=== PATIENT | male | born 1950 | race Caucasian/White ===

== ENCOUNTER → 2025-06-02 10:57 | Outpatient (REF) | payer OTHER, SELFPAY | LOC: HWRCS 10:57 | PROVIDERS: ATTENDING PHYSICIAN Internal Medicine; FAMILY PHYSICIAN Internal Medicine | DX: R06.09 Other forms of dyspnea (principal) | CPT/HCPCS: 78452; 93017; A9500; J2785 ==

== ENCOUNTER 2025-06-09 16:11 | Inpatient (IN) | payer OTHER, SELFPAY ==
[2025-06-09] VITALS (13 sets, daily range): BP systolic 96–133; BP diastolic 51–96; BMI 32.3; BMI 30.6
[2025-06-09 14:17] LABS: Hematocrit 19.2 % (39.0-52.0); Hemoglobin 5.6 g/dL (13.0-18.0); Mean Corp Hgb Conc. 29.2 g/dL (33.0-37.0); Mean Corpuscular Volume 73.6 fL (80.0-94.0); Nucleated Red Blood Cells % 0 % (-); Platelet Count 277 10^3/uL (130-400); Red Cell Dist. Width 16.7 % (11.5-14.5)
[2025-06-09 14:39] LABS: ALT (SGPT) 10 U/L (0-50); AST (SGOT) 16 U/L (17-59); Albumin 4.2 g/dl (3.5-5.0); Alkaline Phosphatase 62 U/L (38-126); Blood Urea Nitrogen 24 mg/dl (9-20); Calcium 8.8 mg/dl (8.4-10.2); Carbon Dioxide 24 mmol/L (22-30); Chloride 104 mmol/L (98-107); Glucose 116 mg/dl (70-99); Potassium 4.2 mmol/L (3.5-5.1); Sodium 138 mmol/L (135-145); Total Protein 6.5 g/dl (6.3-8.2); eGFR 57.29
[2025-06-09 14:50] LABS: Troponin I < 0.012 ng/ml
--- NOTE | 2025-06-09 14:55 | ED.GENMED ---
History of Present Illness
General
Chief Complaint: Heart Rate Problem
Time Seen by Provider: 06/09/25 14:55
History of Present Illness
History of Present Illness:
FOCUSED PAST MEDICAL HISTORY
- A-fib on Eliquis, nonischemic cardiomyopathy
REVIEW OF OLD RECORDS
- I reviewed records, the patient was seen here in 2021 with diagnosis of persistent A-fib and had PVI in 2018 and 2019
Note:
CHIEF COMPLAINT(S)
Anemia, shortness of breath, and weakness.
HISTORY OF PRESENT ILLNESS
The patient is a 74-year-old male presenting with complaints of anemia, shortness of breath, and weakness. Over the past month, the patient has experienced increasing shortness of breath during ambulation and a noticeable decrease in appetite. The
patient previously underwent a nuclear stress test at [facility], which was inconclusive. The patients primary care physician, Dr. Lopez, who is a passenger elevator operator through [facility] [employer], has arranged for a cardiac catheterization procedure this upcoming
Friday.
Currently, lab results show that the patient has significantly low hemoglobin levels, measured at approximately 5 g/dL, compared to previous normal values of 13-14 g/dL. This anemia is strongly suspected to be the cause of the patients symptoms.
There are no signs of a recent myocardial infarction based on cardiac markers, but the patient appears paler than normal, which might suggest acute anemia. The patient denies any recent changes in stool color, such as darkening, or león bleeding
from the rectum. Despite the ongoing Eliquis therapy, the patient does not report taking additional anticoagulants like aspirin or Plavix. The patient also reports experiencing involuntary leg movements (chronic) but denies any chest pain or
pressure.
PHYSICAL EXAM
General: Alert, appears pale, and somewhat weak
Skin: Warm, dry, and pale.
Head: Normocephalic, atraumatic.
Neck: Supple, trachea midline.
Eye, Ears, Nose, Mouth, and Throat: Oral mucosa moist.
Cardiovascular: Normal peripheral perfusion, no edema. Irregular rhythm
Respiratory: Respirations are non-labored. Lung sounds
Gastrointestinal: Abdomen is nondistended. Heme-negative scant dark brown stool
Back: Normal range of motion, normal alignment.
Musculoskeletal: Normal range of motion, normal strength. No abnormal leg movement at this time
Neurological: Alert and oriented to person, place, time, and situation, no focal neurological deficit observed.
Psychiatric: Cooperative, appropriate mood and affect.
PLAN
1. Blood transfusion is recommended due to the patients hemoglobin level being significantly below 7 g/dL. This is expected to improve symptoms related to breathing and general weakness.
2. A consultation with the patients passenger elevator operator, Dr. Beach, at [facility], is needed to address the ongoing cardiac issues and to coordinate care surrounding the pending cardiac catheterization procedure.
3. Investigate potential gastrointestinal bleeding as a cause of anemia, although current findings do not yet confirm it. Additional diagnostics like endoscopy or colonoscopy may be considered.
4. Close monitoring of the patients clinical status post-transfusion and evaluation for any transfusion reactions or complications.
5. Maintain communication with Dr. Beach to ensure integrated care concerning the patients cardiac and anemic conditions.
DIFFERENTIAL DIAGNOSIS
The Differential Diagnosis includes, in no particular order and is not limited to:
1. Iron deficiency anemia
2. Acute gastrointestinal bleed
3. Chronic kidney disease-related anemia
4. Hemolytic anemia
5. Myelodysplastic syndrome
6. Anemia of chronic disease
7. Heart failure-related anemia
8. Vitamin B12 deficiency
9. Folate deficiency
10. Hypothyroidism
Disposition:
SUMMARY OF ENCOUNTER
The patient is a 74-year-old male who presented with significant anemia indicated by a hemoglobin level of 5.6, down from 14.7 in 2021. The patient reported experiencing anemia-related symptoms, including shortness of breath and weakness. There was
no evidence of gastrointestinal bleeding as a source for anemia, with heme-negative brown stool found upon digital rectal examination. The patients troponin levels are negative, dismissing myocardial infarction as a cause. Despite being on apixaban
(Eliquis), the primary concern was the severe drop in hemoglobin. Dr. Brandon Dalton was consulted, agreeing the severe anemia is more likely than coronary disease and recommended admission. Two units of blood were ordered for transfusion to address
anemia.
DISPOSITION
Admit.
ASSESSMENT
The primary assessment is severe anemia likely due to an unidentified cause. Abnormal EKG findings suggest potential cardiac issues, but the anemia is prioritized for immediate intervention.
EMERGENCY TREATMENTS ADMINISTERED
Two units of blood were ordered for transfusion.
MANAGEMENT OF THE PATIENTS CARE WAS DISCUSSED WITH
Dr. Brandon Dalton agreed with the assessment of severe anemia and recommended admission to the medicine service.
INDEPENDENT REVIEW OF LABS AND INTERPRETATION OF TESTS
My independent review of hemoglobin indicates the level is critically low at 5.6 g/dL, a significant drop from 14.7 g/dL in 2021.
My independent review of troponin indicates a negative result, ruling out myocardial infarction at this time.
MEDICATION RECONCILIATION
The patient is currently taking apixaban (Eliquis).
MEDICAL DECISION MAKING
-Complexity of Data Reviewed: Chronic conditions affecting care. Differential diagnosis includes iron deficiency anemia, acute gastrointestinal bleed, chronic kidney disease-related anemia, hemolytic anemia, myelodysplastic syndrome, anemia of
chronic disease, heart failure-related anemia, vitamin B12 deficiency, folate deficiency, and hypothyroidism.
-Data:
Category 1
Non-emergency department records reviewed. External record reviewed: Hemoglobin levels from 2021.
Category 3
Discussion of management with Dr. Brandon Dalton regarding anemia and the decision to admit.
-Risk:
Admission was the chosen course of action due to risk associated with critically low hemoglobin and transfusion
DIAGNOSIS
Severe anemia, unspecified - ICD-10-CM D64.9
EKG
- A-fib, subtle ST depression in the lateral leads which is new in comparison to 2021 but very similar in comparison to the EKG from last month
LABS
- Hemoglobin 5.6, BNP 2800, troponin less than 0.012
Phy Exam
Physical Exam
Physical Exam:
See HPI
Course
Orders/Labs/Results
Orders:
Orders
06/09/25 13:54
EKG [Electrocardiogram (*1)] Urgent
Reason for Study: Atrial Fibrillation
EKG- Treatment ONCE
06/09/25 14:10
BNP [NT-proBNP] Urgent
CBC/With Diff [Complete Blood Count/With Diff] Urgent
CMP [Comprehensive Metabolic Panel] Urgent
Ferritin Urgent
Comment: ADD ON
Iron Urgent
Comment: ADD ON
Total Iron Binding Urgent
Comment: ADD ON
Troponin I Urgent
06/09/25 14:55
* Blood Bank Products Urgent
Blood Bank Products: *Packed RBC Leuko(PRBC's)
Quantity: 2
Transfuse Today: Yes
Reason: Anemia
06/09/25 14:56
Add On- LAB Urgent
Tests Added?: tibc, ferritin, iron
06/09/25 15:08
Type And Crossmatch [Type+Screen] Urgent
Abnormal Lab Results
06/09/25
14:10
RBC 2.61 L 10^6/uL
(4.70-6.10)
Hgb 5.6 L* g/dL
(13.0-18.0)
Hct 19.2 L* %
(39.0-52.0)
MCV 73.6 L fL
(80.0-94.0)
MCH 21.5 L pg
(27.0-31.0)
MCHC 29.2 L g/dL
(33.0-37.0)
RDW 16.7 H %
(11.5-14.5)
Absolute Neuts (auto) 6.9 H 10^3/uL
(1.4-6.5)
Absolute Monos (auto) 0.9 H 10^3/uL
(0.1-0.6)
Lymphocytes % 13.4 L %
(20.5-51.1)
Monocytes % 9.6 H %
(1.7-9.3)
BUN 24 H mg/dl
(9-20)
Glucose 116 H mg/dl
(70-99)
AST 16 L U/L
(17-59)
06/09/25 14:10
06/09/25 14:10
Vital Signs
Initial and Last Documented VS:
Initial Vital Signs
Temp Resp BP
36.7 C 17 119/65
06/09/25 14:00 06/09/25 14:00 06/09/25 14:00
Last Documented Vital Signs
Temp Pulse Resp BP Pulse Ox
36.7 C 83 19 119/65 95
06/09/25 14:04 06/09/25 14:57 06/09/25 14:04 06/09/25 14:04 06/09/25 14:55
*Pulse Oximetry
SaO2: 95
Oxygen Mode of Delivery: Room air
Patient hypoxic: no
*Critical Care Note
Total Time (30-74mins, 75-104mins- exclusive of procedures): Not Applicable
ED Attending Note
-
Portions of this chart may have been created with voice recognition software.� Occasional wrong word or��sound alike� substitutions may have occurred due to the inherent limitations of voice recognition software.
Discharge Plan
Departure
Patient Disposition: Admit
Date of Disposition: 06/09/25
Time of Disposition: 15:15
Presentation/result/management discussed w/ accepting MD/DO: Hospitalist
Discharge Problem:
Symptomatic anemia
Prescriptions:
No Action
omeprazole 40 MG capsule,delayed release(DR/EC)
40 mg PO DAILY
oxycodone 15 MG tablet
15 mg PO BID MDD pain
simvastatin 20 MG tablet
20 mg PO QPM
allopurinol 300 MG tablet
300 mg PO DAILYPRN PRN (Reason: gout)
furosemide 20 MG tablet
20 mg PO DAILY
Eliquis 5 MG tablet
5 mg PO BID
amlodipine 2.5 mg Tablet
2.5 mg PO DAILY
metoprolol succinate 50 mg Tablet Extended Release 24 Hr
50 mg PO BID Qty: 1 0RF
sennosides [senna] 8.6 mg Tablet
8.6 mg PO DAILYPRN PRN (Reason: constipation)
potassium 99 mg Tablet
99 mg PO HS
docusate sodium [Colace] 100 mg Capsule
100 mg PO BID
Referrals:
Lukas Mercedes MD [Family Provider, Internal Medicine]
Interventions
Interventions:
*Risk Screen - Suicide Last Done: 06/09/25 14:00
*General Assessment Last Done: 06/09/25 14:00
*Neglect/Abuse Screening Last Done: 06/09/25 15:14
*ED- Fall Risk Assessment Last Done: 06/09/25 15:14
*ED COVID-19 Vaccine History Last Done: 06/09/25 14:00
*ED Influenza Vaccine History Last Done: 06/09/25 14:00
Discharge Date and Time
Print Language: SALVADOREAN
--- NOTE | 2025-06-09 15:20 | HPS.HSE ---
Addendum entered and electronically signed by Abdirashid Alvarado MD 06/09/25 19:17:
This is an addendum to H&P written by Carito Jones on 06/09/2025. �Patient seen examined independently with DIGITAL ASSET COORDINATOR.
74-year-old male past medical history of persistent atrial fibrillation status post Maze procedure 2021, prior PVI, right bundle branch block, obstructive sleep apnea on CPAP, hypertension, hyperlipidemia, gout, chronic back pain, GERD/Napoles's
esophagus, presenting with 3 days of black stool now improved and fatigue and shortness of breath for past month. �Constipation for 2 days.
He was seeing his manager law Dr. Hogue but was sent in by Dr. Dalton for consideration of cardiac etiology of symptoms and potential cath due to recent inconclusive nuclear stress test.
Patient had colonoscopy 3 years ago and EGD last year which were reportedly normal.
Vital signs show blood pressure 119/65 multiple times although blood pressure did decrease to 95 systolic. �Heme-negative brown stool.
Labs show hemoglobin 5.6.
Concern for upper GI bleeding/ symptomatic acute blood loss anemia as well as opioid associated constipation. �Hold antihypertensive medications. �Hold Eliquis. �N.p.o. past midnight, Protonix twice daily. �2 units of blood. �Iron transfusion. GI
consulted. �MiraLAX added for constipation.
Dr. Dalton thinks symptoms are all due to anemia rather than cardiac.
Original Note:
Family Physician
-
Family Physician: Lukas Mercedes
Chief Complaint
-
Weakness, shortness of breath times several weeks
History of Present Illness
74-year-old male complaining of weakness along with shortness of breath over the past several weeks he was referred to the ER by his manager law Dr. Lopez at [facility] for evaluation. Patient reports he did have black stool last week for
a few days then turned brown. He reports current constipation x 2 days no relief with Colace or senna. In the ER he was noted to be anemic with hemoglobin of 5.6 with heme-negative brown stool. Patient is on Eliquis for permanent A-fib.
Patient with past medical history of persistent A-fib status post PVI, maze procedure, reisolation of LSPV, LAPW and CTI flutter ablation 04/10/2022, chronic back pain on oral opiates, RBBB, GERD, SHARON/CPAP, HTN, HLD, gout
Medical History
Past Medical History
Past Medical History: Reports Other
Additional Past Medical History:
Persistent A-fib
Prior PVI 04/2019, 05/28/2020
Maze procedure 03/08/2022
Post reisolation of LS PV, LA PW and CTI flutter ablation 04/10/2022
RBBB
SHARON/CPAP
HTN
HLD
Gout
Chronic back painOn chronic oral opiates
Past Surgical History: Reports Other
Additional Past Surgical History:
Prior PVI 04/2019, 05/28/2020
Maze procedure 03/08/2022
Post reisolation of LS PV, LA PW and CTI flutter ablation 04/10/2022
Social History
Tobacco: Non-smoker
Alcohol: None
Drug: None
Personal:
Living: With Family ( dora)
Employment: Retired
Family History
Family History: Not pertinent
Allergies / Home Medications
Allergies reflects when Allergies were last updated in [employer].
Home Medications with original date entered in [employer]
Allergy/Medication List:
Allergies
Allergy/AdvReac Type Severity Reaction Status Date / Time
No Known Allergies Allergy Verified 04/10/22 06:51
Home Medications
allopurinol 300 mg tablet 300 mg PO DAILYPRN PRN gout 04/23/19
apixaban 5 mg tablet (Eliquis) 5 mg PO BID Blood clot prevention/tx 04/23/19
furosemide 20 mg tablet 20 mg PO DAILY Fluid retention/Swelling 04/23/19
omeprazole 40 mg capsule,delayed release 40 mg PO DAILY Gastrointestinal issue 04/23/19
oxycodone 15 mg tablet 15 mg PO BID 04/23/19
simvastatin 20 mg tablet 20 mg PO QPM High cholesterol 04/23/19
amlodipine 2.5 mg tablet 2.5 mg PO DAILY 04/10/22
metoprolol succinate 50 mg tablet,extended release 24 hr 50 mg PO BID #1 tab 04/11/22
docusate sodium 100 mg capsule (Colace) 100 mg PO BID 06/09/25
potassium 99 mg tablet 99 mg PO HS 06/09/25
sennosides 8.6 mg tablet (senna) 8.6 mg PO DAILYPRN PRN constipation 06/09/25
Review of Systems
-
History Source: Patient and Family ( dora at bedside )
A 12 point ROS was completed and negative except as noted: Yes
Constitutional: Reports Fatigue and Other (Pale in color); Denies Fever
EENT: Denies Sore Throat or Runny Nose
Respiratory: Reports Trouble Breathing (CHIU); Denies Cough
Cardiac: Denies Chest Pain, Diaphoresis, Palpitations or Syncope
Abdomen/GI: Reports Black Stools (Last week 3 days then resolved to brown); Denies Abdominal Pain, Nausea, Vomiting, Diarrhea, Constipated or Bloody Stools
: Denies Dysuria, Frequency, Flank Pain, Incontinence or Difficulty Voiding
Musculoskeletal: Denies Joint Pain or Edema
Skin: Denies Itching or Rash
Neurological: Denies Dizzy, Headache or Weakness
Endocrine: Reports No Symptoms
Hematologic/Lymphatic: Reports No Symptoms
Psych: Reports Calm
Physical Exam
Vital Signs
Vital Signs
Temp Pulse Resp BP Pulse Ox
98.1 F 83 19 119/65 95
06/09/25 14:04 06/09/25 14:57 06/09/25 14:04 06/09/25 14:04 06/09/25 14:55
Physical Exam
General: Conversant and Other (Pale in color); No Pain, Fever or Chills
HEENT: NormoCephalic, Anicteric, Moist mucous membranes, PERRLA, No Ptosis and Other (Pale conjunctiva)
Respiratory: Clear; No Wheezes, Rales or Rhonchi
Cardiac: S1/S2 and Regular Rhythm; No Murmur, Rub, Gallop or Peripheral Edema
Breast: Deferred by me
GI: Soft, Non Tender, Non Distended, Normal Bowel Sounds and No Hepatosplenomegaly
Rectal: Hem Negative (Brown in ER)
Genito-urinary: Deferred by me
Musculoskeletal: No Clubbing, No Cyanosis and No Edema
Skin: Warm and Dry; No Rash
Neuro: AO x 3, No Motor Deficits, Nonfocal/grossly intact, Cranial Nerves Intact and No Sensory Deficits; No Slurred Speech, Facial Droop, Tremors or Sedated
Psych: Calm
Laboratory Results
-
06/09/25 14:10
06/09/25 14:10
Laboratory Results
Total Bilirubin 1.1 mg/dl (0.2-1.3) 06/09/25 14:10
AST 16 U/L (17-59) L 06/09/25 14:10
ALT 10 U/L (0-50) 06/09/25 14:10
Alkaline Phosphatase 62 U/L (38-126) 06/09/25 14:10
Troponin I < 0.012 ng/ml 06/09/25 14:10
Data Reviewed
-
Lab Data: Labs Reviewed by me
Impression/Plan
-
Impression/plan:
Admit to telemetry
#Symptomatic anemia new Iron deficiency anemia
Heme-negative brown stool in ER however patient reports black stool few days last week
Hgb 5.6, MCV 73.6--prior Hgb 14.7 in 2021 per patient's manager law [address]. Lopez
Iron 21, percent sat 4%
-Check iron panel, B12, folate
92% RA will have supportive oxygen available
-Type and screen
-Transfuse 2 units PRBC
-Start IV Ferrlecit
-IV Protonix 40 mg daily
- Follow CBC
- PT OT consult
- Heme check stools
-Consult GI
- N.p.o. past midnight
EKG: A-fib 87 bpm, QTc 486 MS chronic T wave abnormality lateral leads no change from June 02, 2025
#GERD/Napoles's esophagus
-omeprazole 40 mg daily
-Will give IV Protonix 40 mg daily
- Recent endo 2023
#Acute constipation opioid-induced
Last bowel movement 2 days no relief with Colace and senna
-Will add MiraLAX now
-Monitor stool for blood
#Persistent A-fib
#Prior PVI 04/2019, 05/28/2020
#Maze procedure 03/08/2022
#Post reisolation of LSPV, LAPW and CTI flutter ablation 04/10/2022
- Recent stress test was inconclusive by manager law Dr. Lopez
- Hold Eliquis 5 mg twice daily
#RBBB
#Chronic back pain On chronic oral opiates
- Continue oxycodone 15 mg p.o. twice daily, Colace 100 mg twice daily, senna 8.6 mg daily as needed constipation
#SHARON/CPAP
Patient wears nasal CPAP unsure of setting
#HTN
BP 119/65
- Continue metoprolol succinate 50 mg twice daily with hold parameters, amlodipine 2.5 mg daily with hold parameters, furosemide 20 mg daily
#HLD
Continue simvastatin 20 mg every afternoon
#Gout
- Continue allopurinol 300 mg p.o. daily as needed gout
DVT prophylaxis
SCDs
Full code
[2025-06-09 15:32] LABS: Iron 21 ug/dl (49-181)
[2025-06-09 15:42] LABS: Total Iron Binding Capacity 460 ug/dl (261-462)
[2025-06-09 17:21] LABS: Ferritin 7.8 ng/ml (17.9-464.0)
[2025-06-09 17:52] LABS: Folate 7.8 ng/ml (2.76-20); Vitamin B12 215 pg/ml (239-931)
--- NOTE | 2025-06-09 18:44 | CON.GI ---
Consultation
-
Date/Time Consultation Requested: 06/09/2025
Date/Time Consultation Performed: 06/09/2025
Requesting Provider:
Performing Provider:
Reason for Consultation: anemia
Medical History
Chief Complaint / HPI
Chief Complaint: SOB and fatigue
History of Present Illness:
This is a 74-year-old male with past medical history of nonischemic cardiomyopathy, A-fib on Eliquis his information developer is Dr. Lopez at [facility], RBBB, SHARON/CPAP, HTN, HLD, Gout, cataracts, GERD, Barretts here for symptomatic anemia. He says that
for the past 1 month he has been having profound fatigue and dyspnea on exertion and he thought it was related to his heart saw his information developer and is scheduled for a cardiac catheterization next week. He now presents to the ER and was noted to
have a hemoglobin of 5.6 with an MCV of 73.6. His hemoglobin in 2021 was 14.7. His BUN is 24. He had iron studies also at admission which showed severe iron deficiency anemia with a ferritin of 7.8 iron saturation of 4%. LFTs are normal,
troponin is negative. He states his last endoscopy was in 2023 for Napoles's esophagus and he follows up with [facility] and sees Dr. Muller. He told me he also had a colonoscopy last year along with his endoscopy but he told the admitting
team that he had his colonoscopy about 3 years ago and is actually due for a colonoscopy this August. He says about 2 weeks ago he noted dark stools 2-3 episodes which resolved and he has not had any further episodes since then. He denies any
abdominal pain. No nausea or vomiting or hematemesis. No recent weight loss.
Past Medical History
Past Medical History: Other (NICM, A-fib on Eliquis, RBBB, SHARON/CPAP, HTN, HLD, Gout, cataracts, GERD, Barretts)
Past Surgical History: Other (CCY, left TKR, low back fusion, cataract, Prior PVI 04/2019 and 05/28/2020 Maze procedure 03/08/2022, Post reisolation of LS PV, LA PW and CTI flutter ablation 04/10/2022)
Social History
Tobacco: Non-Smoker
Alcohol: None
Drug: None
Personal:
Living: With Family
Employment: Retired
Family History
Family History: Reviewed & Not Pertinent
Allergies / Home Medications
Allergy/AdvReac Type Severity Reaction Status Date / Time
No Known Allergies Allergy Verified 04/10/22 06:51
�Medication �Instructions �Recorded
allopurinol 300 mg tablet 300 mg PO DAILYPRN PRN gout 04/23/19
apixaban 5 mg tablet (Eliquis) 5 mg PO BID Blood clot 04/23/19
prevention/tx
furosemide 20 mg tablet 20 mg PO DAILY Fluid 04/23/19
retention/Swelling
omeprazole 40 mg capsule,delayed 40 mg PO DAILY Gastrointestinal 04/23/19
release issue
oxycodone 15 mg tablet 15 mg PO BID 04/23/19
simvastatin 20 mg tablet 20 mg PO QPM High cholesterol 04/23/19
amlodipine 2.5 mg tablet 2.5 mg PO DAILY 04/10/22
metoprolol succinate 50 mg 50 mg PO BID #1 tab 04/11/22
tablet,extended release 24 hr
docusate sodium 100 mg capsule 100 mg PO BID 06/09/25
(Colace)
potassium 99 mg tablet 99 mg PO HS 06/09/25
sennosides 8.6 mg tablet (senna) 8.6 mg PO DAILYPRN PRN constipation 06/09/25
Review of Systems
-
All other systems: A 12 pt ROS was Negative except as stated above in HPI
Vital Signs
Temp Pulse Resp BP Pulse Ox
97.5 F 74 12 112/72 88
06/09/25 17:25 06/09/25 18:00 06/09/25 18:00 06/09/25 18:00 06/09/25 18:00
Physical Exam
Exam
General: No Apparent Distress
HEENT: Normocephalic
Respiratory: Clear
Cardiac: Regular Rhythm and Murmur (systolic murmur)
GI: Soft, Non Tender, Non Distended and Normal Bowel Sounds
Neuro: Awake, Alert and Oriented
Psych: Calm
Results
WBC 9.5 10^3/uL (4.8-10.8) 06/09/25 14:10
Hgb 5.6 g/dL (13.0-18.0) L* 06/09/25 14:10
Hct 19.2 % (39.0-52.0) L* 06/09/25 14:10
MCV 73.6 fL (80.0-94.0) L 06/09/25 14:10
Plt Count 277 10^3/uL (130-400) 06/09/25 14:10
Absolute Neuts (auto) 6.9 10^3/uL (1.4-6.5) H 06/09/25 14:10
Sodium 138 mmol/L (135-145) 06/09/25 14:10
Potassium 4.2 mmol/L (3.5-5.1) 06/09/25 14:10
Chloride 104 mmol/L (98-107) 06/09/25 14:10
Carbon Dioxide 24 mmol/L (22-30) 06/09/25 14:10
BUN 24 mg/dl (9-20) H 06/09/25 14:10
Creatinine 1.3 mg/dL (0.7-1.3) 06/09/25 14:10
Calcium 8.8 mg/dl (8.4-10.2) 06/09/25 14:10
Total Bilirubin 1.1 mg/dl (0.2-1.3) 06/09/25 14:10
AST 16 U/L (17-59) L 06/09/25 14:10
ALT 10 U/L (0-50) 06/09/25 14:10
Alkaline Phosphatase 62 U/L (38-126) 06/09/25 14:10
Diagnostic Image Results:
Prior GI Procedures:
EGD: 2023 at [facility]
Colonoscopy: 3 years ago [facility]
Assessment / Plan
-
Severe symptomatic iron deficiency anemia concerning for probable neoplasm versus blood loss from angioectasias vs PUD he did have 2-3 episodes of melena about 2 weeks ago which resolved and he says his stools have been brown since then. Is getting
2 units of packed red blood cells. He took his Eliquis today morning so will have to wait for Eliquis washout and will schedule him for endoscopy and colonoscopy on Friday which will be performed sooner if he has any active bleeding. Will also try
and obtain records from [facility].
-
-
Thank you for consultation and allowing me to participate in the patient's care. Please call the alumni relations coordinator GI physician during the after hours with any questions or concerns.
[2025-06-09] MEDS: ROXICODONE 15 MG PO (20:24)
[2025-06-09] MEDS: COLACE 100 MG PO (20:24)
[2025-06-09] MEDS: NSS (PRESERVATIVE FREE) 10 ML IV (20:29)
[2025-06-09] MEDS: PROTONIX IV 40 MG IV (20:29)
[2025-06-09] MEDS: MIRALAX 17 GRAMS PO (20:48)
[2025-06-09] MEDS: FERRLECIT 110 MG IV (20:48)
[2025-06-10] VITALS (9 sets, daily range): BP systolic 110–131; BP diastolic 57–81; PULSE 87; BMI 31.9
[2025-06-10] MEDS: ROXICODONE 15 MG PO ×2 (08:04→21:11)
[2025-06-10] MEDS: NSS (PRESERVATIVE FREE) 10 ML IV ×2 (08:04→20:06)
[2025-06-10] MEDS: COLACE 100 MG PO ×2 (08:04→20:04)
[2025-06-10] MEDS: MIRALAX 17 GRAMS PO ×2 (08:04→20:05)
[2025-06-10] MEDS: PROTONIX IV 40 MG IV ×2 (08:05→20:06)
[2025-06-10 08:59] LABS: Hematocrit 24.0 % (39.0-52.0); Hemoglobin 7.2 g/dL (13.0-18.0); Mean Corp Hgb Conc. 30.0 g/dL (33.0-37.0); Mean Corpuscular Volume 76.2 fL (80.0-94.0); Nucleated Red Blood Cells % 0 % (-); Platelet Count 240 10^3/uL (130-400); Red Cell Dist. Width 17.6 % (11.5-14.5)
--- NOTE | 2025-06-10 09:20 | W.PN.HOSP.TC ---
Today's Communication/Plan
-
Add Senna
ok for diet
GI work up Friday
Assessment / Plan
Assessment / Plan
Physical Exam
General: Conversant and Other (Pale in color); No Pain, Fever or Chills
HEENT: Normocephalic, Anicteric, Moist mucous membranes, PERRLA, No Ptosis and Other (Pale conjunctiva)
Respiratory: Clear; No Wheezes, Rales or Rhonchi
Cardiac: S1/S2 and Regular Rhythm; No Murmur, Rub, Gallop or Peripheral Edema
GI: Soft, Non Tender, Non Distended, Normal Bowel Sounds.
Rectal: Hem Negative (Brown in ER)
Genito-urinary: No Vaughn
Musculoskeletal: No Clubbing, No Cyanosis and No Edema
Skin: Warm and Dry; No Rash
Neuro: AO x 3, No Motor Deficits, Nonfocal/grossly intact, No Slurred Speech, Facial Droop, Tremors or Sedated
Psych: Calm.
A/P:
#Acute blood loss anemia
Symptomatic anemia new Iron deficiency anemia
Heme-negative brown stool in ER however patient reports black stool few days last week
Hgb 5.6, MCV 73.6--prior Hgb 14.7 in 2021 per patient's business advisor Dr. Lopez
Iron 21, percent sat 4%
s/p 2 units PRBC
-c/w IV Iron
-IV Protonix 40 mg daily
- Follow CBC
- PT OT consulted
- Heme check stools
-Consulted GI, GI work up on Friday after Eliquis wash-out
#GERD/Napoles's esophagus
-omeprazole 40 mg daily
IV Protonix 40 mg daily
- Recent endo 2023
#Acute constipation opioid-induced
Last bowel movement 2 days no relief with Colace and senna
- MiraLAX
-Monitor stool for blood
#Persistent A-fib
#Prior PVI 04/2019, 05/28/2020
#Maze procedure 03/08/2022
#Post reisolation of LSPV, LAPW and CTI flutter ablation 04/10/2022
- Recent stress test was inconclusive by business advisor Dr. Lopez
- Hold Eliquis 5 mg twice daily
#RBBB
#Chronic pain syndrome with opioid dependency
Back pain on chronic oral opiates
- Continue oxycodone 15 mg p.o. twice daily, Colace 100 mg twice daily, senna 8.6 mg daily as needed constipation
#SHARON/CPAP
Patient wears nasal CPAP unsure of setting
#HTN
- Continue metoprolol succinate 50 mg twice daily with hold parameters, amlodipine 2.5 mg daily with hold parameters, furosemide 20 mg daily
#HLD
Continue simvastatin 20 mg every afternoon
#Gout
- Continue allopurinol 300 mg p.o. daily as needed gout
DVT prophylaxis
SCDs
Total time spent to see the patient, examine the patient, review data and lab result, discuss treatment plan with patient, nursing staff around 55 minutes
Anticipated Discharge: > 48 hours
Subjective/Interval History
-
Date of Service: June 10, 2025
No chest pain
No abdominal pain
Wants to eat
Objective Data
-
Labs:
Laboratory Results
06/10/25 06/10/25
07:14 07:15
WBC 8.9
Hgb 7.2 L D
Hct 24.0 L
Plt Count 240
Sodium Pending
Potassium Pending
Chloride Pending
Carbon Dioxide Pending
BUN Pending
Creatinine Pending
Glucose Pending
Calcium Pending
Total Bilirubin Pending
AST Pending
ALT Pending
Alkaline Phosphatase Pending
Vital Signs:
Vital Signs
Temp Pulse Resp BP Pulse Ox
97.7 F 75 16 120/68 97
06/10/25 07:00 06/10/25 07:00 06/10/25 07:00 06/10/25 07:00 06/10/25 07:00
I&O
06/09/25 06/10/25 06/11/25
06:59 06:59 06:59
Intake Total 740 / 740
Output Total 300 / 300
Balance 440 / 440
[2025-06-10 09:48] LABS: ALT (SGPT) < 10 U/L (0-50); AST (SGOT) 15 U/L (17-59); Albumin 3.7 g/dl (3.5-5.0); Alkaline Phosphatase 66 U/L (38-126); Blood Urea Nitrogen 20 mg/dl (9-20); Calcium 9.0 mg/dl (8.4-10.2); Carbon Dioxide 24 mmol/L (22-30); Chloride 106 mmol/L (98-107); Estimated Creatinine Clearance 56 ml/min; Glucose 87 mg/dl (70-99); Potassium 3.9 mmol/L (3.5-5.1); Sodium 138 mmol/L (135-145); Total Protein 6.2 g/dl (6.3-8.2); eGFR > 60.00
--- NOTE | 2025-06-10 11:16 | CM ---
Patient seen at bedside on . Patient lives with his in a 1 story home with 3 steps to enter. Patient has a CPAP at home and uses it. Patient PCP is Dr. Gaytan and he uses the [facility] in [place] for pharmacy needs. Patient plan is for
home with no needs at this time. CM will continue to follow for discharge planning needs.
Plan; pending medical treatment plan; watch for home VN needs
--- NOTE | 2025-06-10 12:07 | W.PN.GI.CBS2 ---
Addendum entered and electronically signed by Ramses Rosas MD 06/10/25 13:47:
I saw and examined the patient.
The SHELLFISH SORTER or PA's note was reviewed and I agree with the note.
Comment: 74 yo pmh ischemic CM, A fib on Eliquis, Napoles's p/w symptomatic anemia found to have hemoglobin of 5.6. Of note, he states he had melena that 2 weeks ago which self resolved after 2 or 3 episodes. Stools have now been normal. He does
have some baseline constipation. I did get his outside records which I have reviewed and put in an updated note. He had an endoscopy 02/2025 with Schiatzki ring dilated and Napoles's not biopsied (only Watt's; 2021 only one jar of Napoles's taken
for long segment); last colo 02/2022 polyps inc TVA all small, tics, hemorrhoids.
Plan EGD/cscope Friday d/w patient r/a/b procedure including not limited to bleeding, infection, perforation, missed lesion.
With constipation so will need bowel regimen over weekend.
Hold Eliquis last dose 10 am.
Continue protonix IV BID.
Original Note:
Today's Communication / Plan
-
EGD/COLO friday
Assessment / Plan
-
Severe symptomatic iron deficiency anemia concerning for probable neoplasm versus blood loss from angioectasias vs PUD he did have 2-3 episodes of melena about 2 weeks ago which resolved and he says his stools have been brown since then. Patient is
s/p 2 units of packed red blood cells. He took his Eliquis 06/09/25 morning so will have to wait for Eliquis washout. Plan for endoscopy and colonoscopy on Friday which will be performed sooner if he has any active bleeding. Pending records from
prior procedures.
Impression:
Severe symptomatic anemia
Chronic Anticoagulation, last dose 06/08/25 for Afib
GERD/Barretts
Plan:
-continue Pantoprazole 40 mg IV BID
-continue miralax, colace and Senna
-Ok for low residue diet today.
-Await records from GI
-Plan on EGD/COLO Friday.
Subjective
Subjective
Date of Service: June 10, 2025
Patient without any BM overnight. Feeling improved after having blood and iron. Hgb currently 7.2. Awaiting records from prior GI. Plan on EGD/COLO on Friday, patient agreeable.
Objective
Data Reviewed
Laboratory Data:
Laboratory Results
06/10/25 07:15
06/10/25 07:14
Laboratory Results
Total Bilirubin 3.0 mg/dl (0.2-1.3) H D 06/10/25 07:14
AST 15 U/L (17-59) L 06/10/25 07:14
ALT < 10 U/L (0-50) 06/10/25 07:14
Alkaline Phosphatase 66 U/L (38-126) 06/10/25 07:14
Vital Signs and I&O:
Vital Signs
Temp Pulse Resp BP Pulse Ox
97.7 F 75 16 120/68 97
06/10/25 07:00 06/10/25 07:00 06/10/25 07:00 06/10/25 07:00 06/10/25 07:00
I&O
06/09/25 06/10/25 06/11/25
06:59 06:59 06:59
Intake Total 740 / 740
Output Total 300 / 300
Balance 440 / 440
Physical Exam
Physical Exam
HEENT: Anicteric
Cardiology: Normal Sinus Rhythm
Pulmonary: Clear (anterior)
GI: Soft, Non Distended, Non Tender and Normal Bowel Sounds
Neuro: Non Focal
--- NOTE | 2025-06-10 12:40 | W.PN.UPDATE ---
Update Note
Progress Note Update
Records reviewed from outside hospital:
Upper endoscopy August 2022 duodenum normal, diffuse moderate erythema in the stomach biopsies taken, polyps in the stomach biopsies taken, small hiatal hernia, Napoles's esophagus. Biopsies and WATS taken. Pathology consistent with Napoles's.
Mild chronic inflammation of stomach.
Colonoscopy August 2022 5 polyps 4 to 6 mm in size removed with cold snare, diverticulosis, hemorrhoids. Pathology showed tubular adenoma and tubulovillous adenoma.
Upper endoscopy February 2025 Napoles's esophagus last taken, mild stenosis of the GE junction dilated to 18 mm, multiple polyps in the stomach, duodenum normal. Do not have pathology.
[2025-06-10] MEDS: FERRLECIT 110 MG IV (13:41)
[2025-06-10] MEDS: LIPITOR 10 MG PO (17:34)
[2025-06-10] MEDS: SENOKOT 17.2 MG PO (21:11)
[2025-06-11] VITALS (12 sets, daily range): BP systolic 116–136; BP diastolic 67–91; BMI 32.0
--- NOTE | 2025-06-11 06:21 | PTCARENOTE ---
Pt slept well overnight. Pt did not move bowels, bowel regimen in place. New IV placed this am by VAT RN. Vital signs stable. Pt ambulatory to bathroom as needed. Call holden in reach. Will continue to monitor.
[2025-06-11 07:38] LABS: Hematocrit 23.7 % (39.0-52.0); Hemoglobin 7.0 g/dL (13.0-18.0); Mean Corp Hgb Conc. 29.5 g/dL (33.0-37.0); Mean Corpuscular Volume 77.7 fL (80.0-94.0); Nucleated Red Blood Cells % 0 % (-); Platelet Count 234 10^3/uL (130-400); Red Cell Dist. Width 17.9 % (11.5-14.5)
[2025-06-11 07:59] LABS: ALT (SGPT) < 10 U/L (0-50); AST (SGOT) 15 U/L (17-59); Albumin 3.5 g/dl (3.5-5.0); Alkaline Phosphatase 66 U/L (38-126); Blood Urea Nitrogen 14 mg/dl (9-20); Calcium 9.0 mg/dl (8.4-10.2); Carbon Dioxide 26 mmol/L (22-30); Chloride 106 mmol/L (98-107); Estimated Creatinine Clearance 61 ml/min; Glucose 89 mg/dl (70-99); Potassium 3.6 mmol/L (3.5-5.1); Sodium 138 mmol/L (135-145); Total Protein 6.0 g/dl (6.3-8.2); eGFR > 60.00
--- NOTE | 2025-06-11 09:04 | W.PN.HOSP.TC ---
Today's Communication/Plan
-
Opioid induced constipation, will need bowel regimen
Asked for recliner to sleep
2 Units of RBCS today
Assessment / Plan
Assessment / Plan
Physical Exam
General: Conversant and Other (Pale in color); No Pain, Fever or Chills
HEENT: Normocephalic, Anicteric, Moist mucous membranes, PERRLA, No Ptosis and Other (Pale conjunctiva)
Respiratory: Clear; No Wheezes, Rales or Rhonchi
Cardiac: S1/S2 and Regular Rhythm; No Murmur, Rub, Gallop or Peripheral Edema
GI: Soft, Non Tender, Non Distended, Normal Bowel Sounds.
Rectal: Hem Negative (Brown in ER)
Genito-urinary: No Vaughn
Musculoskeletal: No Clubbing, No Cyanosis and No Edema
Skin: Warm and Dry; No Rash
Neuro: AO x 3, No Motor Deficits, Nonfocal/grossly intact, No Slurred Speech, Facial Droop, Tremors or Sedated
Psych: Calm.
A/P:
#Acute blood loss anemia
Symptomatic anemia new Iron deficiency anemia
Heme-negative brown stool in ER however patient reports black stool few days last week
Hgb 5.6, MCV 73.6--prior Hgb 14.7 in 2021 per patient's associate professor of biblical studies Dr. Lopez
Iron 21, percent sat 4%
s/p 2 units PRBC, will give another 2 units with Lasix in between.
-c/w IV Iron
-IV Protonix 40 mg daily
- PT OT consulted
Goal of HGB >8
-Consulted GI, GI work up on Friday after Eliquis wash-out
#GERD/Napoles's esophagus
-omeprazole 40 mg daily
IV Protonix 40 mg daily
- Recent endo 2023
#Acute constipation opioid-induced
Last bowel movement 2 days no relief with Colace and senna
- MiraLAX
No rectal bleeding
# Opioid induced constipation
will need bowel regimen
#Persistent A-fib
#Prior PVI 04/2019, 05/28/2020
#Maze procedure 03/08/2022
#Post reisolation of LSPV, LAPW and CTI flutter ablation 04/10/2022
- Recent stress test was inconclusive by associate professor of biblical studies Dr. Lopez
- Hold Eliquis 5 mg twice daily
#RBBB
#Chronic pain syndrome with opioid dependency
Back pain on chronic oral opiates
- Continue oxycodone 15 mg p.o. twice daily, Colace 100 mg twice daily, senna 8.6 mg daily as needed constipation
#SHARON/CPAP
Patient wears nasal CPAP unsure of setting
#HTN
- Continue metoprolol succinate 50 mg twice daily with hold parameters, amlodipine 2.5 mg daily with hold parameters, furosemide 20 mg daily
#HLD
Continue simvastatin 20 mg every afternoon
#Gout
- Continue allopurinol 300 mg p.o. daily as needed gout
DVT prophylaxis
SCDs
Total time spent to see the patient, examine the patient, review data and lab result, discuss treatment plan with patient, nursing staff around 55 minutes
Anticipated Discharge: > 48 hours
Subjective/Interval History
-
Date of Service: June 11, 2025
No chest pain
No sob
Objective Data
-
Labs:
Laboratory Results
06/11/25
06:39
WBC 8.4
Hgb 7.0 L
Hct 23.7 L
Plt Count 234
Sodium 138
Potassium 3.6
Chloride 106
Carbon Dioxide 26
BUN 14
Creatinine 1.1
Glucose 89
Calcium 9.0
Total Bilirubin 2.1 H
AST 15 L
ALT < 10
Alkaline Phosphatase 66
Vital Signs:
Vital Signs
Temp Pulse Resp BP Pulse Ox
98.1 F 73 20 120/74 99
06/11/25 07:42 06/11/25 07:42 06/11/25 07:42 06/11/25 07:42 06/11/25 07:42
I&O
06/10/25 06/11/25 06/12/25
06:59 06:59 06:59
Intake Total 740 / 740 900 / 900
Output Total 300 / 300 300 / 300
Balance 440 / 440 600 / 600
[2025-06-11] MEDS: ROXICODONE 15 MG PO ×2 (10:19→22:03)
[2025-06-11] MEDS: COLACE 100 MG PO ×2 (10:19→22:02)
[2025-06-11] MEDS: NSS (PRESERVATIVE FREE) 10 ML IV ×2 (10:21→22:02)
[2025-06-11] MEDS: MIRALAX 17 GRAMS PO ×2 (10:22→22:02)
[2025-06-11] MEDS: PROTONIX IV 40 MG IV ×2 (10:22→22:03)
--- NOTE | 2025-06-11 10:39 | W.PN.GI.CBS2 ---
Today's Communication / Plan
-
extended bowel prep starting today
Assessment / Plan
-
74 yo pmh ischemic CM, A fib on Eliquis, Napoles's p/w symptomatic anemia found to have hemoglobin of 5.6. Of note, he states he had melena that 2 weeks ago which self resolved after 2 or 3 episodes. Stools have now been normal. He does have some
baseline constipation. I did get his outside records which I have reviewed and put in an updated note. He had an endoscopy 02/2025 with Schiatzki ring dilated and Napoles's not biopsied (only Watt's in 2024; 2021 only one jar of Napoles's taken for
long segment- therefore Napoles's needs to be biopsied on Friday); last colo 02/2022 polyps inc TVA all small, tics, hemorrhoids.
Plan EGD/cscope Friday d/w patient 06/10 r/a/b procedure including not limited to bleeding, infection, perforation, missed lesion.
With constipation so will need bowel regimen over weekend - will give mag citrate tonight (Cr ok), continue miralax, senna, and start clear liquid at lunch.
Hold Eliquis last dose 10/2 am.
Continue protonix IV BID.
Subjective
Subjective
Date of Service: June 11, 2025
No BM despite miralax, senna, colace
Objective
Data Reviewed
Laboratory Data:
Laboratory Results
06/11/25 06:39
06/11/25 06:39
Laboratory Results
Total Bilirubin 2.1 mg/dl (0.2-1.3) H 06/11/25 06:39
AST 15 U/L (17-59) L 06/11/25 06:39
ALT < 10 U/L (0-50) 06/11/25 06:39
Alkaline Phosphatase 66 U/L (38-126) 06/11/25 06:39
Vital Signs and I&O:
Vital Signs
Temp Pulse Resp BP Pulse Ox
98.1 F 73 20 120/74 99
06/11/25 07:42 06/11/25 07:42 06/11/25 07:42 06/11/25 07:42 06/11/25 07:42
I&O
06/10/25 06/11/25 06/12/25
06:59 06:59 06:59
Intake Total 740 / 740 900 / 900
Output Total 300 / 300 300 / 300
Balance 440 / 440 600 / 600
Physical Exam
Physical Exam
GI: Non Distended and Non Tender
[2025-06-11] MEDS: LASIX 20 MG IV (15:17)
--- NOTE | 2025-06-11 16:31 | PTCARENOTE ---
Assumed care of pt from previous nurse. Pt denies pain. Pt is on tele running afib. Pt on his second unit of blood, tolerating without issue. pt call holden is within reach, pt rings julita. will cont to monitor.
[2025-06-11] MEDS: CITROMA 300 ML PO (18:51)
[2025-06-11] MEDS: FERRLECIT 110 MG IV (18:51)
[2025-06-11] MEDS: LIPITOR 10 MG PO (18:51)
[2025-06-11] MEDS: SENOKOT 17.2 MG PO (22:03)
[2025-06-12] VITALS (7 sets, daily range): BP systolic 124–137; BP diastolic 70–93; BMI 31.6
[2025-06-12 08:09] LABS: Hematocrit 31.2 % (39.0-52.0); Hemoglobin 9.6 g/dL (13.0-18.0); Mean Corp Hgb Conc. 30.8 g/dL (33.0-37.0); Mean Corpuscular Volume 79.0 fL (80.0-94.0); Platelet Count 244 10^3/uL (130-400); Red Cell Dist. Width 19.1 % (11.5-14.5)
--- NOTE | 2025-06-12 09:20 | W.PN.HOSP.TC ---
Today's Communication/Plan
-
NPO past MN
For GI study in am
IV Iron
Assessment / Plan
Assessment / Plan
Physical Exam
General: Conversant and Other (Pale in color); No Pain, Fever or Chills
HEENT: Normocephalic, Anicteric, Moist mucous membranes, PERRLA, No Ptosis and Other (Pale conjunctiva)
Respiratory: Clear; No Wheezes, Rales or Rhonchi
Cardiac: S1/S2 and Regular Rhythm; No Murmur, Rub, Gallop or Peripheral Edema
GI: Soft, Non Tender, Non Distended, Normal Bowel Sounds.
Rectal: Hem Negative (Brown in ER)
Genito-urinary: No Vaughn
Musculoskeletal: No Clubbing, No Cyanosis and No Edema
Skin: Warm and Dry; No Rash
Neuro: AO x 3, No Motor Deficits, Nonfocal/grossly intact, No Slurred Speech, Facial Droop, Tremors or Sedated
Psych: Calm.
A/P:
#Acute blood loss anemia
Symptomatic anemia new Iron deficiency anemia
Heme-negative brown stool in ER however patient reports black stool few days last week
Hgb 5.6, MCV 73.6--prior Hgb 14.7 in 2021 per patient's boss dyer Dr. Lopez
Iron 21, percent sat 4%
s/p 4 with Lasix in between.
-c/w IV Iron
-IV Protonix 40 mg daily
- PT OT consulted
Goal of HGB >8
-Consulted GI, GI work up on Friday after Eliquis wash-out
#GERD/Napoles's esophagus
-omeprazole 40 mg daily
IV Protonix 40 mg daily
- Recent endo 2023
#Constipation opioid-induced
s/p bowel regimen
#Persistent A-fib
#Prior PVI 04/2019, 05/28/2020
#Maze procedure 03/08/2022
#Post reisolation of LSPV, LAPW and CTI flutter ablation 04/10/2022
- Recent stress test was inconclusive by boss dyer Dr. Lopez
- Hold Eliquis 5 mg twice daily
#RBBB
#Chronic pain syndrome with opioid dependency
Back pain on chronic oral opiates
- Continue oxycodone 15 mg p.o. twice daily, Colace 100 mg twice daily, senna 8.6 mg daily as needed constipation
#SHARON/CPAP
Patient wears nasal CPAP unsure of setting
#HTN
- Continue metoprolol succinate 50 mg twice daily with hold parameters, amlodipine 2.5 mg daily with hold parameters, furosemide 20 mg daily
#HLD
Continue simvastatin 20 mg every afternoon
#Gout
- Continue allopurinol 300 mg p.o. daily as needed gout
DVT prophylaxis
SCDs
Total time spent to see the patient, examine the patient, review data and lab result, discuss treatment plan with patient, nursing staff around 55 minutes
Anticipated Discharge: Within 24 hours
Subjective/Interval History
-
Date of Service: June 12, 2025
He is doing better
No sob
No chest pain
Objective Data
-
Labs:
Laboratory Results
06/12/25
06:46
WBC 9.5
Hgb 9.6 L D
Hct 31.2 L
Plt Count 244
Vital Signs:
Vital Signs
Temp Pulse Resp BP Pulse Ox
97.5 F 78 14 136/93 95
06/12/25 03:00 06/12/25 03:00 06/12/25 03:00 06/12/25 03:00 06/12/25 03:00
I&O
06/11/25 06/12/25 06/13/25
06:59 06:59 06:59
Intake Total 900 / 900 1580 / 1580
Output Total 300 / 300 1050 / 1050
Balance 600 / 600 530 / 530
[2025-06-12] MEDS: DESENEX/MITRAZOL/ZEASORB 1 APPLIC TOPICAL ×2 (10:06→21:03)
[2025-06-12] MEDS: COLACE 100 MG PO ×2 (10:09→21:02)
[2025-06-12] MEDS: MIRALAX PO (10:09)
[2025-06-12] MEDS: NSS (PRESERVATIVE FREE) 10 ML IV ×2 (10:09→21:00)
[2025-06-12] MEDS: ROXICODONE 15 MG PO ×2 (10:10→21:06)
[2025-06-12] MEDS: PROTONIX IV 40 MG IV ×2 (10:10→21:02)
--- NOTE | 2025-06-12 10:23 | W.PN.GI.CBS2 ---
Today's Communication / Plan
-
egd /colo tomorrow
Assessment / Plan
-
74 yo pmh ischemic CM, A fib on Eliquis, Napoles's p/w symptomatic anemia found to have hemoglobin of 5.6. Of note, he states he had melena that 2 weeks ago which self resolved after 2 or 3 episodes. Stools have now been normal. He does have some
baseline constipation. I did get his outside records which I have reviewed and put in an updated note. He had an endoscopy 02/2025 with Schiatzki ring dilated and Napoles's not biopsied (only Watt's in 2024; 2021 only one jar of Napoles's taken for
long segment- therefore Napoles's needs to be biopsied on Friday); last colo 02/2022 polyps inc TVA all small, tics, hemorrhoids.
Plan EGD/cscope Friday d/w patient 06/10 r/a/b procedure including not limited to bleeding, infection, perforation, missed lesion.
Patient requested miralax prep to do 238 g tonight and 117 g in am.
Hold Eliquis last dose 06/09 am.
Continue protonix IV BID.
Continue to trend Hb, goal Hb >7.
Patient requesting discharge pending egd/colo findings explained depends on hb and findings further recommendations pending.
Subjective
Subjective
Date of Service: June 12, 2025
did have some bm after last night meds
Objective
Data Reviewed
Laboratory Data:
Laboratory Results
06/12/25 06:46
06/11/25 06:39
Laboratory Results
Total Bilirubin 2.1 mg/dl (0.2-1.3) H 06/11/25 06:39
AST 15 U/L (17-59) L 06/11/25 06:39
ALT < 10 U/L (0-50) 06/11/25 06:39
Alkaline Phosphatase 66 U/L (38-126) 06/11/25 06:39
Vital Signs and I&O:
Vital Signs
Temp Pulse Resp BP Pulse Ox
98.0 F 82 18 137/80 95
06/12/25 08:29 06/12/25 08:29 06/12/25 08:29 06/12/25 08:29 06/12/25 08:29
I&O
06/11/25 06/12/25 06/13/25
06:59 06:59 06:59
Intake Total 900 / 900 1580 / 1580
Output Total 300 / 300 1050 / 1050
Balance 600 / 600 530 / 530
Physical Exam
Physical Exam
GI: Non Distended and Non Tender
[2025-06-12] MEDS: FERRLECIT 110 MG IV (14:00)
[2025-06-12] MEDS: GAVILAX 238 GM PO (18:17)
[2025-06-12] MEDS: LIPITOR 10 MG PO (18:18)
[2025-06-12] MEDS: MIRALAX 17 GRAMS PO (21:00)
[2025-06-12] MEDS: SENOKOT 17.2 MG PO (21:02)
[2025-06-13] MEDS: GAVILAX 117 GM PO (02:58)
[2025-06-13 03:00] VITALS: BP 129/76
[2025-06-13 05:57] VITALS: BMI 31.7
[2025-06-13 07:57] LABS: Hematocrit 31.1 % (39.0-52.0); Hemoglobin 9.6 g/dL (13.0-18.0); Mean Corp Hgb Conc. 30.9 g/dL (33.0-37.0); Mean Corpuscular Volume 80.2 fL (80.0-94.0); Platelet Count 223 10^3/uL (130-400); Red Cell Dist. Width 20.8 % (11.5-14.5)
[2025-06-13 08:22] VITALS: BP 132/89
[2025-06-13 08:31] LABS: Blood Urea Nitrogen 8 mg/dl (9-20); Calcium 9.0 mg/dl (8.4-10.2); Carbon Dioxide 27 mmol/L (22-30); Chloride 106 mmol/L (98-107); Estimated Creatinine Clearance 61 ml/min; Glucose 82 mg/dl (70-99); Potassium 3.9 mmol/L (3.5-5.1); Sodium 140 mmol/L (135-145); eGFR > 60.00
--- NOTE | 2025-06-13 08:38 | VATNOTE ---
Called to assess previous right ac IV site. Right AC site was removed for redness/phlebtis >48 hours ago. Patient reports pain in area started last evening. No increased warmth to area noted; area with swelling, no drainage. Minimal cord felt on
palpation. Recommend warm compresses to area. VAT to follow, aware.
[2025-06-13 10:49] VITALS: BP 103/65; BP_SYST 20
[2025-06-13 11:04] VITALS: BP 111/73; BP_SYST 20
[2025-06-13] MEDS: COLACE PO (11:26)
[2025-06-13] MEDS: MIRALAX PO (11:27)
[2025-06-13] MEDS: NSS (PRESERVATIVE FREE) 10 ML IV (11:28)
[2025-06-13] MEDS: PROTONIX IV 40 MG IV (11:28)
[2025-06-13] MEDS: DESENEX/MITRAZOL/ZEASORB 1 APPLIC TOPICAL (11:36)
[2025-06-13] MEDS: ROXICODONE 15 MG PO (11:44)
[2025-06-13 12:19] VITALS: BP 131/76
--- NOTE | 2025-06-13 13:37 | W.PN.HOSP.TC ---
Addendum entered and electronically signed by Ariella White MD 06/13/25 15:49:
Ultrasound of right arm shows acute occlusive superficial venous thrombosis in the right cephalic vein--called patient to notify--warm compresses 20 minutes on, 20 minutes off throughout the day today--Eliquis can restart tomorrow.
Original Note:
Today's Communication/Plan
-
await US
d/c planning pending results
Assessment / Plan
Assessment / Plan
pt is a 74 year old male
Acute blood loss anemia--Symptomatic anemia new Iron deficiency anemia--Heme-negative brown stool in ER however patient reports black stool few days last week--Hgb 5.6, MCV 73.6--prior Hgb 14.7 in 2021 per patient's die sinker Dr. Lopez--Iron 21,
percent sat 4%--s/p 4 units pRBC, s/p IV iron--apprec GI--had EGD with known Napoles's, nodular mucosa and polyps in stomach all biopsied--colonoscopy showed polyps in cecum, hepatic flexure, ileocecal valve, transverse colon--resected--cont PPI
daily--hold Eliquis for 24 hours--needs capsule of small bowel--follow up with standing GI as oputpt
right antecubital tender swollen area--? superficial thrombophlebitis--await US for confirmation
GERD/Napoles's esophagus--omeprazole 40 mg daily
Constipation opioid-induced--s/p bowel regimen
Persistent A-fib/Prior PVI 04/2019, 05/28/2020/Maze procedure 03/08/2022/Post reisolation of LSPV, LAPW and CTI flutter ablation 04/10/2022-- Recent stress test was inconclusive by die sinker Dr. Lopez- Hold Eliquis 5 mg twice daily for 24 hours
Chronic pain syndrome with opioid dependency--Back pain on chronic oral opiates- Continue oxycodone 15 mg p.o. twice daily, Colace 100 mg twice daily, senna 8.6 mg daily as needed constipation
SHARON/CPAP--Patient wears nasal CPAP unsure of setting
Essential HTN-- Continue metoprolol succinate 50 mg twice daily with hold parameters, amlodipine 2.5 mg daily with hold parameters, furosemide 20 mg daily
HLD--Continue simvastatin 20 mg every afternoon
Gout- Continue allopurinol 300 mg p.o. daily as needed gout
DVT prophylaxis--SCDs
Anticipated Discharge: Today
Subjective/Interval History
-
Date of Service: June 13, 2025
pt ready for d/c--c/o sore swollen tender spot in right antecubital area
Objective Data
-
Labs:
Laboratory Results
06/13/25
06:47
WBC 8.4
Hgb 9.6 L
Hct 31.1 L
Plt Count 223
Sodium 140
Potassium 3.9
Chloride 106
Carbon Dioxide 27
BUN 8 L
Creatinine 1.1
Glucose 82
Calcium 9.0
Vital Signs:
max temp for 24 hours
06/13/25
03:00
Temp 98 F
Vital Signs
Temp Pulse Resp BP Pulse Ox
97.2 F 72 18 131/76 96
06/13/25 12:19 06/13/25 12:19 06/13/25 12:19 06/13/25 12:19 06/13/25 12:19
I&O
06/12/25 06/13/25 06/14/25
06:59 06:59 06:59
Intake Total 1580 / 1580 1080 / 1080
Output Total 1050 / 1050
Balance 530 / 530 1080 / 1080
Review of Systems
-
All other systems: Reviewed and negative
Musculoskeletal: Reports Other (tender swollen right antecubital area)
Physical Exam
-
General: Well Developed, Well Nourished and No Apparent Distress
HEENT: Normocephalic and Atraumatic; Negative Oxygen
Respiratory: Clear to Auscultation; Negative Wheezes or Rhonchi
Cardiac: Irregular Rhythm
GI: Soft, Nontender, Nondistended and Normal Bowel Sounds
Musculoskeletal: No Clubbing, No Cyanosis, No Edema and Other (right antecubital area (lower bicep area) swollen firm tender lump noted)
[2025-06-13] MEDS: FERRLECIT IV (15:23)
--- NOTE | 2025-06-13 16:01 | CM ---
Patient seen at bedside with physician. Patient stated that he would go home with family. No VN at this time. IMM completed and signed form placed on chart. CM will continue to follow for discharge planning needs.
PLan; home with no needs anticipated
--- NOTE | 2025-06-13 16:16 | W.DCSUMMARY ---
Discharge Summary
Discharge Data
Date of Admission: 06/09/25
Date of Discharge: 06/13/25
-
Pending Results: Yes
Additional Pending Results:
biopsies taken from EGD and colonoscopy
Hospital Course
Primary care physician : Lukas Mercedes
Principal Discharge diagnosis : Acute blood loss anemia, right antecubital tender swollen area
Chronic Discharge diagnosis : Gastroesophageal reflux disease/Napoles's esophagus, opioid-induced constipation, persistent atrial fibrillation status post prior PVI/maze procedure/flutter ablation, chronic pain syndrome with opioid dependence,
obstructive sleep apnea on CPAP, essential hypertension, hyperlipidemia, gout
Hospital Course : Patient is a 74-year-old male who started complaining of shortness of breath over the past several weeks and was referred to the emergency department by his pearl fisherman Dr. Lopez at [facility] for evaluation.
Patient reportedly had black stools the week prior to admission which then turned brown. He reports constipation without any relief from Colace or senna. He was found to be anemic with a hemoglobin of 5.6 and heme-negative brown stool. Patient is
on Eliquis for permanent atrial fibrillation. Patient was admitted.
Problem #1: Acute blood loss anemia. Patient had symptomatic anemia and was found to have new iron deficiency anemia. Hemoglobin on admission was 5.6. Patient received 4 units of packed red blood cells with improvement to 9.6. He also received
IV iron. GI was consulted and the patient had EGD which showed known Napoles's esophagus, nodular mucosa and polyps in the stomach which were all biopsied. He also had a colonoscopy which showed polyps in the cecum, hepatic flexure, ileocecal
valve, and transverse colon all resected. He was placed on a PPI and should continue that at discharge. Eliquis has been on hold for washout to undergo the procedures. GI is recommending restarting Eliquis tomorrow June 14, 2025. He will need
a capsule of the small bowel and he should follow-up with his outpatient GI to complete his workup.
Problem #2: Right antecubital tender swollen area. Patient did have an IV in that area. Ultrasound was done which showed acute occlusive superficial venous thrombosis in the right cephalic vein. He will be restarting his Eliquis tomorrow. This
is superficial and warm compresses 20 minutes on, 20 minutes off throughout today was told to the patient. Nothing further to do.
Problem #3: All other medical issues. These include Gastroesophageal reflux disease/Napoles's esophagus, opioid-induced constipation, persistent atrial fibrillation status post prior PVI/maze procedure/flutter ablation, chronic pain syndrome with
opioid dependence, obstructive sleep apnea on CPAP, essential hypertension, hyperlipidemia, gout. These medical issues were stable during his hospitalization. Medications were continued as able.
Patient is stable for discharge home at this time. If there are any questions regarding this dictation or his hospital stay, please do not hesitate to call. Our office number is [phone].
Time for discharge 35 minutes.
Important imaging findings :
ULTRASOUND IMPRESSION:
ACUTE OCCLUSIVE SUPERFICIAL VENOUS THROMBOSIS in the RIGHT CEPHALIC VEIN.
Procedure findings :
EGD Impression:
- Esophageal mucosal changes secondary to established long-segment
Napoles's disease. Biopsied.
- 4 cm hiatal hernia.
- Nodular mucosa in the entire stomach. Biopsied.
- Multiple gastric polyps. Biopsied.
- A single gastric polyp. Resected and retrieved.
- Normal examined duodenum. Biopsied.
- A single duodenal polyp. Biopsied.
COLONOSCOPY Impression:
- The examined portion of the ileum was normal.
- Diverticulosis at the hepatic flexure, in the sigmoid colon, in
the transverse colon and in the descending colon.
- Five 1 to 3 mm polyps in the cecum, at the hepatic flexure, at
the ileocecal valve, in the transverse colon and in the descending
colon, removed with a jumbo cold forceps. Resected and retrieved.
- Hemorrhoids.
Discharge Plan
-
Patient Disposition: Home (Routine Discharge)
Discharge Diagnosis/Procedures: Acute blood loss anemia due to symptomatic anemia with new iron deficiency anemia status post 4 units of packed red blood cells and EGD/colonoscopy, right antecubital tender swollen area, gastroesophageal reflux
disease/Napoles's esophagus, opioid-induced constipation, persistent atrial fibrillation with prior PVI/maze procedure/flutter ablation, chronic pain syndrome with opioid dependency, obstructive sleep apnea on CPAP, essential hypertension,
hyperlipidemia, gout, superficial thrombosis right cephalic vein
Condition: Good
Diet: As tolerated and Regular
Activity: As tolerated
Driving Restrictions: No driving for 24 hours
Bathing Restrictions: None
Referrals:
Lukas Mercedes MD [Family Provider, Internal Medicine] - in less than 1 week
Prescriptions:
Continued
omeprazole 40 MG capsule,delayed release(DR/EC)
40 mg PO DAILY
oxycodone 15 MG tablet
15 mg PO BID MDD pain
simvastatin 20 MG tablet
20 mg PO QPM
allopurinol 300 MG tablet
300 mg PO DAILYPRN PRN (Reason: gout)
furosemide 20 MG tablet
20 mg PO DAILY
amlodipine 2.5 mg Tablet
2.5 mg PO DAILY
metoprolol succinate 50 mg Tablet Extended Release 24 Hr
50 mg PO BID Qty: 1 0RF
sennosides [senna] 8.6 mg Tablet
8.6 mg PO DAILYPRN PRN (Reason: constipation)
potassium 99 mg Tablet
99 mg PO HS
docusate sodium [Colace] 100 mg Capsule
100 mg PO BID
Held
Eliquis 5 MG tablet
5 mg PO BID
Hold Instructions: do not restart the Eliquis until tomorrow
Discharge Orders:
Discharge Patient (As Directed); Ordered 06/13/25
Ordered By: Ariella White
Discharge Date and Time
Print Language: QATARI
[2025-06-13] MEDS: FLUZONE HIGH-DOSE 2025-26 0.5 ML IM (16:35)
[2025-06-13 16:51] VITALS: BP 128/76
== END 2025-06-13 17:24 | disposition home or self-care (01) | DRG 988 ==
LOC: 4 WEST ACU 16:11
PROVIDERS: Clinical Nurse Specialist Family Health; Internal Medicine; Internal Medicine Gastroenterology; ADMITTING PHYSICIAN Hospitalist; ATTENDING PHYSICIAN Internal Medicine; CONSULT PHYSICIAN Internal Medicine Gastroenterology; EMERGENCY PHYSICIAN Emergency Medicine; FAMILY PHYSICIAN Internal Medicine
PROC: 30233N1 Transfusion of Nonautologous Red Blood Cells into Peripheral Vein, Percutaneous Approach (ICD-10-PCS; 2025-06-09)
PROC: 0DBC8ZZ Excision of Ileocecal Valve, Via Natural or Artificial Opening Endoscopic (ICD-10-PCS; 2025-06-13)
PROC: 0DBL8ZZ Excision of Transverse Colon, Via Natural or Artificial Opening Endoscopic (ICD-10-PCS; 2025-06-13)
PROC: 0DBM8ZZ Excision of Descending Colon, Via Natural or Artificial Opening Endoscopic (ICD-10-PCS; 2025-06-13)
PROC: 0DBH8ZZ Excision of Cecum, Via Natural or Artificial Opening Endoscopic (ICD-10-PCS; 2025-06-13)
PROC: 0DB58ZX Excision of Esophagus, Via Natural or Artificial Opening Endoscopic, Diagnostic (ICD-10-PCS; 2025-06-13)
PROC: 0DB98ZX Excision of Duodenum, Via Natural or Artificial Opening Endoscopic, Diagnostic (ICD-10-PCS; 2025-06-13)
PROC: 3E02340 Introduction of Influenza Vaccine into Muscle, Percutaneous Approach (ICD-10-PCS; 2025-06-13)
PROC: 0DB68ZX Excision of Stomach, Via Natural or Artificial Opening Endoscopic, Diagnostic (ICD-10-PCS; 2025-06-13)
DX: D62 Acute posthemorrhagic anemia (principal); F11.20 Opioid dependence, uncomplicated; I42.8 Other cardiomyopathies; I48.21 Permanent atrial fibrillation; I82.611 Acute embolism and thrombosis of superficial veins of right upper extremity; K92.1 Melena; D12.4 Benign neoplasm of descending colon; D50.9 Iron deficiency anemia, unspecified; K22.70 Barrett's esophagus without dysplasia; K31.7 Polyp of stomach and duodenum; G47.33 Obstructive sleep apnea (adult) (pediatric); I10 Essential (primary) hypertension; E78.00 Pure hypercholesterolemia, unspecified; M10.9 Gout, unspecified; K21.9 Gastro-esophageal reflux disease without esophagitis; I45.10 Unspecified right bundle-branch block; G89.4 Chronic pain syndrome; K44.9 Diaphragmatic hernia without obstruction or gangrene; M54.9 Dorsalgia, unspecified; K59.03 Drug induced constipation; K64.9 Unspecified hemorrhoids; K57.30 Diverticulosis of large intestine without perforation or abscess without bleeding; D12.3 Benign neoplasm of transverse colon; D12.0 Benign neoplasm of cecum; T40.2X5A Adverse effect of other opioids, initial encounter; Y92.9 Unspecified place or not applicable; Z79.01 Long term (current) use of anticoagulants; Z79.899 Other long term (current) drug therapy; Z23 Encounter for immunization; Z98.1 Arthrodesis status
CPT/HCPCS: 36430; 80048; 80053; 82607; 82728; 82746; 83540; 83550; 83880; 84484; 85025; 85027; 86850; 86900; 86901; 86920; 87070; 88305; 88342; 93005; 93971; 97162; 97165; 99285; J2916; P9016